=== PATIENT | female | born 1960 | race Caucasian/White ===

== ENCOUNTER → 2017-02-26 | Outpatient (CLI) | payer MEDICARE ==
[~2017-02-26] MED LIST: ASPIRIN81 M1 PO; ASPIRIN81 M2 PO; CRESTOR PO; CRESTOR10 MG PO; IRON325 ( 652 PO; LISINOPRIL10 MG PO; SUPER B COMPLEX1 CAP PO; VITAMIN D-32000 UNI1 PO; VITAMIN D35000 UNI1 PO; ZZZQUIL25 MG PO; [UNRECOGNIZED DRUG - REMARK]
--- NOTE | ~2017-02-26 | MY29 ---
[facility] A Service of [facility] RADIOLOGY TEXT RESULTS PATIENT: BELLO WHIPPLE LOCATION: [facility] : 62 UNIT #: [id number] AGE: [address]: Roxana Prakash MD SEX: F ORDER DR: [id number] [facility] [address] [place] [place], [place] [address] [id number] O MR#: [id number] Acc #: [id number] NAME: BELLO WHIPPLE : 1960 SEX: F STUDY DATE/TIME: 02/26/2017 10:15 UNIT: [facility] ROOM: STUDY DESCRIPTION: MY [facility] SCREENING W/ CAD BILAT Attending Physician: Roxana Prakash M.D. Referring Physician: Roxana Prakash M.D. Ordering Physician: Roxana Prakash M.D. Primary Care Physician: Roxana Prakash M.D. MEDICAL IMAGING REPORT This report is preliminary unless electronic signature is present EXAM Digital screening mammogram 02/26/17 [facility] HISTORY 56-year-old woman no risk elevation. Prior left breast biopsy. Annual screen. COMPARISON: Mammograms date to 04/20/09 with most recent 02/22/15 with followup diagnostic left breast imaging and ultrasound 03/30/15. FINDINGS Digital imaging f each breast was completed utilizing screening protocol. Review includes FDA approved CAD device. Breast parenchyma is predominantly fatty replaced with parenchymal dominance projecting upper outer quadrant left breast middle third and posterior third. A small circumscribed benign nodule inner hemisphere left breast is stable. Imaged guided biopsy marker projects central left breast and stable. There is no interval occurring mass. I see no suspicious microcalcifications and no suspicious architectural deformity. IMPRESSION Stable benign mammogram. Annual screening recommended. Patients over the age of 40 are entered into a reminder system with target due date for the next mammogram. A result letter will also be sent to the patient. BIRADS: 2 - benign findings [facility] A Service of [facility] RADIOLOGY TEXT RESULTS PATIENT: BELLO WHIPPLE LOCATION: [facility] : 62 UNIT #: [id number] AGE: [address]: Roxana Prakash MD SEX: F ORDER DR: Dictated by... Kenneth Raya M.D. THIS IS AN ELECTRONICALLY VERIFIED REPORT Kenneth Raya M.D. at 02/26/2017 3:01 PM VICTORINO/filipe TD: 02/26/2017 14:11 JOB #: [id number] MEDICAL IMAGING REPORT Page 1 of 1 COPY
== END | disposition home or self-care (01) ==
LOC: CWCC 09:45
DX: Z12.31 Encounter for screening mammogram for malignant neoplasm of breast (principal); Z98.890 Other specified postprocedural states
CPT/HCPCS: G0202